=== PATIENT | male | born 1970 | race Caucasian/White ===

== ENCOUNTER 2020-12-11 11:30 | Day surgery (SDC) | payer OTHER, SELFPAY ==
[2020-12-11] VITALS (8 sets, daily range): BP systolic 96–135; BP diastolic 62–89; PULSE 66–80; RESP 12–20; TEMP 36.3–37.3; O2SAT 95–98; BMI 33.4
--- NOTE | 2020-12-11 11:56 | WPDHPUPDATE1 ---
History and Physical Update Update Date/Time: 12/11/20 11:56 History and Physical has been reviewed, including an updated exam of the patient. There are NO changes in the patient's condition. Risks, benefits, and alternatives have been discussed and questions answered. Patient agrees to proceed with procedure.
[2020-12-11] MEDS: ACETAMINOPHEN 500 MG TABLET 1000 MG PO (12:55)
--- NOTE | 2020-12-11 12:55 | P.PNAN_ITS ---
Anes - Initial Pre Proc Eval Procedure: Operation Date: 12/11/20 14:00 Proposed Procedures p Rectal Exam Under Anesthesia, Excision of Thrombosed Hemorrhoid - Marcelina Blandon MD Date/Time: 12/11/20 12:55 Surgeon: Marcelina Blandon MD Pre Op Diagnosis: hemorrhoids Patient Data Age: 50 Gender: M Height: Weight: Allergies Allergy/AdvReac Type Severity Reaction Status Date / Time Penicillins AdvReac Unknown UNKNOWN Verified 12/11/20 11:58 REACTION CHILD Home Medications Medication Instructions Recorded Confirmed Type lisinopril 2.5 mg tablet 2.5 mg PO DAILY 04/24/20 12/11/20 History atorvastatin 20 mg tablet 20 mg PO DAILY #90 tablet 06/03/20 12/11/20 Rx hydrocodone 7.5 mg-acetaminophen 1 tablet PO Q4H PRN #14 tablet 12/10/20 12/11/20 Rx 325 mg tablet ondansetron HCl 4 mg tablet 4 mg PO Q8H PRN #20 tablet 12/11/20 12/11/20 Rx Patient hx anesthesia problems: none Family hx anesthesia problems: none PMFSH Past Medical History Medical History Benign prostatic hyperplasia with lower urinary tract symptoms HTN (hypertension) Mixed hyperlipidemia Surgical History Surgical History No pertinent past surgical history Family History Family History Sibling Patient's brother is in good health Father Cerebrovascular accident Family history of premature coronary heart disease Hypertension Family history of elevated blood lipids Family history of coronary artery disease Mother Cerebrovascular accident Hypertension Family history of elevated blood lipids Social History Social History Social History: Smoking status: Never smoker Second hand tobacco smoke exposure: No Alcohol intake: never Substance use: never Substance use type: does not use 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 Questions were solicited and answers provided to the satisfaction of the patient/family/POA.
[2020-12-11] MEDS: LACTATED RINGERS 1,000 ML 30 ML IV CONT (13:00)
[2020-12-11] MEDS: KETOROLAC 15 MG/ML VIAL (*BKC) IV PUSH (13:02)
[2020-12-11] MEDS: ceFAZolin 2 GM/D5W 50 ML 2 GM/50 ML BAG IVPB (13:10)
[2020-12-11] MEDS: LIDOCAINE HCL 2% GEL UROJET 10 ML PKG MUCOUS MEM (13:38)
[2020-12-11] MEDS: GELATIN SPONGE SZ 100 1 EACH TOPICAL (13:39)
--- NOTE | 2020-12-11 13:57 | PM.PROC ---
Procedure Note - Detailed Date of procedure: 12/11/20 Pre-op diagnosis: hemorrhoids Thrombosed external hemorrhoids Post-op diagnosis: same Procedure performed: exam under anesthesia, excision thrombosed external hemorrhoids x3 Description of procedure: The patient was taken to the operating room and placed in the modified lithotomy position. After adequate induction of general anesthesia, the patient was prepped draped in the normal sterile fashion. A time-out was then done to verify the patient's identity, as well as the procedure being performed. I began by doing a bilateral pudendal nerve block. Once this was achieved, I began by doing a rectal exam. A anoscope was placed into the anus and the rectum was noted to be unremarkable. The patient was noted to have 3 large thrombosed external hemorrhoids right greater than left. He did have a very large thrombosis on the right and 2 moderate sized areas on the left. I began by 1st unroofing all of these areas and evacuating the clots. Once this was done, we used the LigaSure device to excise all 3 of these hemorrhoids. It was noted that the anodermal was hemostatic after excision. I then went ahead and placed a Gelfoam covered with lidocaine jelly into the rectal vault. Sterile dressing was then placed. The patient tolerated the procedure well and was extubated in the operating room postoperatively. He will now be sent to the recovery room in stable condition. Anesthesia: GETA and local Surgeon: Marcelina Blandon MD Estimated blood loss (mL): 10 Drains: No Packing: No Pathology: yes Complications: No immediate complications Condition: stable Disposition: PACU Findings: Thrombosed external hemorrhoid x3
== END 2020-12-11 15:27 | disposition home or self-care (01) ==
PROVIDERS: PCP Family Medicine; Visit Provider Surgery
PROC: (CPT 46320; principal; 2020-12-10 14:30)
DX: K64.5 Perianal venous thrombosis (principal); I10 Essential (primary) hypertension; E78.2 Mixed hyperlipidemia; N40.1 Benign prostatic hyperplasia with lower urinary tract symptoms; E66.9 Obesity, unspecified; Z68.33 Body mass index [BMI] 33.0-33.9, adult
CPT/HCPCS: 46320 ×3; 88304; A9270; J0690; J1100; J1885; J2250; J2405; J2704; J3010; J7120

== ENCOUNTER 2021-09-28 00:12 | Day surgery (SDC) | payer OTHER, SELFPAY ==
[2021-09-18 10:31] VITALS: BMI 35.4
--- NOTE | 2021-09-27 13:25 | P.PNAN_ITS ---
Anes - Eval Pre Procedure Procedure: Operation Date: 09/28/21 13:30 Proposed Procedures p Screening Colonoscopy - Avery Kwong MD Date/Time: 09/27/21 13:25 Pre Op Diagnosis: neoplasm screening Patient Data Age: 51 Gender: M Height: 1.75 m Weight: 109 kg Allergies Allergy/AdvReac Type Severity Reaction Status Date / Time Penicillins AdvReac Unknown UNKNOWN Verified 09/18/21 10:33 REACTION CHILD Home Medications Medication Instructions Recorded Confirmed Type atorvastatin 20 mg tablet 20 mg PO DAILY #90 tablet 08/11/21 09/18/21 Rx chlorthalidone 25 mg tablet 12.5 mg PO DAILY #90 tablet 08/11/21 09/18/21 Rx lisinopril 2.5 mg tablet 2.5 mg PO DAILY #90 tablet 08/11/21 09/18/21 Rx aspirin [Adult Low Dose Aspirin] 81 mg PO DAILY 09/18/21 09/18/21 History Patient hx anesthesia problems: none Family hx anesthesia problems: none Results Review: All pre-operative results and documents have been reviewed as part of the pre-operative evaluation. [facility] Past Medical History Medical History Benign prostatic hyperplasia with lower urinary tract symptoms BMI 33.0-33.9,adult HTN (hypertension) Mixed hyperlipidemia Surgical History Surgical History History of hemorrhoidectomy exam under anesthesia, excision thrombosed external hemorrhoids x3 Family History Family History Sibling Patient's brother is in good health Father Cerebrovascular accident Family history of premature coronary heart disease Hypertension Family history of elevated blood lipids Family history of coronary artery disease Mother Cerebrovascular accident Hypertension Family history of elevated blood lipids Social History Social History Social History: Smoking status: Never smoker Second hand tobacco smoke exposure: No Alcohol intake: never Substance use: never Substance use type: does not use Living arrangements: with family 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
[2021-09-28 13:00] VITALS: BP 122/78; PULSE 69; RESP 18; TEMP 36.1; O2SAT 100; BMI 33.5
[2021-09-28] MEDS: LACTATED RINGERS 1,000 ML 150 ML IV CONT (13:20)
--- NOTE | 2021-09-28 13:26 | WPDANESEFPP ---
Anes - Eval Final PreProcedure Day of Procedure 09/28/21 13:26 Patient weight: obese Heart: regular rate and rhythm Lungs: clear to auscultation and normal air movement Airway: Mallampati scale class II Neurological: alert and oriented Last oral intake: >/= 8 hours ASA classification: III Emergent: no Anesthetic plan: proceed Anesthesia type and monitoring: general GIVS and standard monitoring Results Review: All pre-operative results and documents have been reviewed as part of the pre-operative evaluation. Informed Consent: The patient's anesthetic plan and its attendant risks and benefits were discussed with the patient/family/POA. Questions were solicited and answers provided to the satisfaction of the patient/family/POA.
--- NOTE | 2021-09-28 13:51 | PM.HPGS ---
History of Present Illness History of Present Illness Consent: Risks, benefits, and alternatives have been discussed and questions answered. Patient agrees to proceed with procedure. Chief complaint: neoplasm screening Narrative: Kieran Gimenez is a 51 year old male here for first screening colonoscopy Review of Systems Constitutional: Constitutional: Denies headache(s) and Denies weakness Eyes: Eyes: Denies blurry vision ENT: Reports Normal hearing present, Denies headache(s) and Denies neck pain Cardiovascular: Cardiovascular: Denies chest pain and Denies dyspnea Respiratory: Respiratory: Denies dyspnea Gastrointestinal: Gastrointestinal: Reports no additional gastrointestinal complaints Genitourinary: Genitourinary: Denies dysuria Musculoskeletal: Musculoskeletal: Denies neck pain Integumentary/Breasts: Skin/Breast: Denies dry skin Neurologic: Reports Normal hearing present, Denies headache(s) and Denies weakness Psychiatric: Psychiatric: Denies anxiety Endocrine: Endocrine: Denies change in body appearance Hematologic/Lymphatic: Hematologic/Lymphatic: Denies easy bleeding Allergic/Immunologic: Allergic/Immunologic: Denies urticaria PMFSH Past Medical History Medical History Benign prostatic hyperplasia with lower urinary tract symptoms BMI 33.0-33.9,adult HTN (hypertension) Mixed hyperlipidemia Surgical History Surgical History History of hemorrhoidectomy exam under anesthesia, excision thrombosed external hemorrhoids x3 Family History Family History Sibling Patient's brother is in good health Father Cerebrovascular accident Family history of premature coronary heart disease Hypertension Family history of elevated blood lipids Family history of coronary artery disease Mother Cerebrovascular accident Hypertension Family history of elevated blood lipids Social History Social History Social History: Smoking status: Never smoker Second hand tobacco smoke exposure: No Alcohol intake: never Substance use: never Substance use type: does not use Living arrangements: with family 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 Gender identity (if verbalized by the patient): Male Sexual Orientation (if Verbalized by the Patient): Straight or Heterosexual Spiritual care concerns: No Meds Home Medications and Allergies Home Medications Medication Instructions Recorded Confirmed Type atorvastatin 20 mg tablet 20 mg PO DAILY #90 tablet 08/11/21 09/28/21 Rx chlorthalidone 25 mg tablet 12.5 mg PO DAILY #90 tablet 08/11/21 09/28/21 Rx lisinopril 2.5 mg tablet 2.5 mg PO DAILY #90 tablet 08/11/21 09/28/21 Rx aspirin [Adult Low Dose Aspirin] 81 mg PO DAILY 09/18/21 09/28/21 History Allergies Allergy/AdvReac Type Severity Reaction Status Date / Time Penicillins AdvReac Unknown UNKNOWN Verified 09/28/21 13:07 REACTION CHILD Vital Signs Vital Signs - 24 hr 09/28/21 13:00 Temperature 97.0 F L Pulse Rate 69 Respiratory Rate 18 Blood Pressure 122/78 Pulse Oximetry 100 Exam Const: General: comfortable and no acute distress HENMT: General nose exam: Normal nares present Eyes: General: appearance normal, both eyes and all related structures Neck: Neck: no JVD Resp: Auscultation: clear to auscultation bilaterally Cardio: Rate: regular rate Rhythm: regular rhythm GI: Inspection: non-distended GI Palp: Yes Soft to palpation Skin: General skin exam: normal color Neuro: General: gait normal Speech: normal speech Extrem: General: normal to inspection Psych: Mental Status: mental status grossly normal Assessment and Plan Assessment and plan (1) Screening for colon cance
[2021-09-28 14:18] VITALS: BP 102/75; PULSE 70; RESP 16; O2SAT 98
[2021-09-28 14:28] VITALS: BP 108/76; PULSE 66; RESP 15; O2SAT 100
[2021-09-28 14:38] VITALS: BP 126/77; PULSE 67; RESP 18; O2SAT 100
== END 2021-09-28 14:47 | disposition home or self-care (01) ==
PROVIDERS: PCP Family Medicine; Visit Provider Internal Medicine Gastroenterology
PROC: 0DJD8ZZ Inspection of Lower Intestinal Tract, Via Natural or Artificial Opening Endoscopic (ICD-10-PCS; CPT 45378; principal; 2021-09-28 13:30)
DX: Z12.11 Encounter for screening for malignant neoplasm of colon (principal); D12.2 Benign neoplasm of ascending colon; D12.3 Benign neoplasm of transverse colon; K57.30 Diverticulosis of large intestine without perforation or abscess without bleeding; I10 Essential (primary) hypertension; E78.2 Mixed hyperlipidemia; Z79.82 Long term (current) use of aspirin; E66.9 Obesity, unspecified; Z68.33 Body mass index [BMI] 33.0-33.9, adult
CPT/HCPCS: 45385; 45380; 88305; J2704; J7120

== ENCOUNTER 2023-01-28 08:33 | Outpatient (CLI) | payer OTHER, SELFPAY ==
--- NOTE | ~2023-01-28 | XR_ITS ---
EXAMINATION: XR lumbar spine min 4V DATE: 01/28/2023 08:59 INDICATION: Spondylosis without myelopathy or radiculopathy. TECHNIQUE: 5 views of lumbar spine were obtained. COMPARISON: Lumbar spine radiographs 07/01/2016, CT abdomen and pelvis 12/14/2018 FINDINGS: Bone alignment is normal. There is mild chronic anterior wedging of L1 vertebral body. Ther e is mildly decreased disc height at L3-L4 and L5-S1. There is multilevel mild facet joint osteoarthr itis. There is moderate to severe facet joint osteoarthritis in lower lumbar spine. IMPRESSION: 1. Mild lumbar spondylosis. Reviewed, dictated and finalized at location A. IMPRESSION: 1. Mild lumbar spondylosis.
== END 2023-01-28 08:34 ==
PROVIDERS: PCP Family Medicine; Visit Provider Physician Assistant
DX: M47.816 Spondylosis without myelopathy or radiculopathy, lumbar region (principal)
CPT/HCPCS: 72110

== ENCOUNTER 2023-03-01 07:49 | Day surgery (SDC) | payer OTHER, SELFPAY ==
[2023-02-24 13:37] VITALS: BMI 35.4
--- NOTE | ~2023-03-01 | XR_ITS ---
EXAMINATION: XR fluoroscopy no charge DATE: 03/01/2023 8:45 CDT INDICATION: LEFT SACROILIAC JOINT STEROID INJECTION . TECHNIQUE: 3 fluoroscopic images of the left SI joint were obtained during left SI joint steroid inje ction performed by the surgeon. I was not present in the operating room. Fluoroscopy exposure time wa s 7.1 seconds. Air Kerma 6.01 mGy. COMPARISON: None FINDINGS: Left sacroiliac injection, with needle and contrast. IMPRESSION: Fluoroscopic documentation of left SI joint steroid injection. Please refer to the operative note for complete procedural details . Reviewed, dictated and finalized at location K.
--- NOTE | 2023-03-01 07:17 | WPDHPUPDATE1 ---
History and Physical Update Update Date/Time: 03/01/23 07:17 History and Physical has been reviewed, including an updated exam of the patient. There are NO changes in the patient's condition. Risks, benefits, and alternatives have been discussed and questions answered. Patient agrees to proceed with procedure.
[2023-03-01 08:13] VITALS: BP 134/90; PULSE 65; RESP 16; TEMP 36.6; O2SAT 99
[2023-03-01] MEDS: BUPivacaine HCL 0.5% 10 ML AMP 2 ML INFILTRATE (08:42)
[2023-03-01 08:44] VITALS: BP 130/84; PULSE 64; RESP 16; O2SAT 98
[2023-03-01] MEDS: LIDOCAINE HCL 1% PF INJ 5 ML VIAL 2 ML XX (08:44)
--- NOTE | 2023-03-01 08:46 | W.PM.PROC2 ---
Procedure Note - Detailed Date of Procedure 03/01/23 Pre-op Diagnosis sacroiliitis, lumbosacral spondylosis, chronic low back pain Post-op Diagnosis Same Procedure Performed left sacroiliac joint steroid injection under fluoroscopic guidance with contrast control. Surgeon Manoj Villegas MD [employer] Architect None. Anesthesia Local Indications Chronic low back pain secondary to sacroiliitis. Findings None. Description of Procedure INFORMED CONSENT: Risks, benefits and alternatives to the procedure were discussed in detail with the patient who expressed explicit understanding and consent to proceed. Patient was informed verbally and in written form regarding the risks associated with the procedure including the low risk of serious infection, bleeding/bruising, allergic reaction, nerve or organ injury, paralysis, procedural site pain or discomfort, worsening pain and/or mobility, failure to treat and/or disfigurement. The patient expressed explicit understanding and consent to proceed. All materials required for the procedure were available prior to procedure start. Site and side were marked prior to procedure and confirmed in the presence of the patient. PROCEDURE IN DETAIL: The patient was brought to the procedural suite and placed in the prone position. Patient was made comfortable with use of pillows under the head/chest, hips and ankles. Skin overlying the injection site on the affected side(s) was prepared broadly with ChloraPrep applicator and draped in a sterile manner. Aseptic technique was used throughout. The SI joint was identified in the AP view and contralateral oblique angulation with caudal tilt was utilized to optimize visualization of the inferior and medial joint line representing the posterior portion of the joint. Local anesthesia was established by infiltration with approximately 5 mL of 2% lidocaine via a 1-1/2 inch 27-gauge needle. A 22-gauge 3.5 inch Quincke spinal needle was advanced until the needle entered the inferior third of the joint space approximately 1cm cephalad from its most inferior point. In the AP view, 0.5 mL of Omnipaque 300 contrast medium was injected after negative aspiration for CSF, blood or other bodily fluid, showing appropriate intra-articular spread of contrast without evidence of intravascular, perineural or intrathecal placement. A 2.0 mL solution containing 10.0 mg of dexamethasone in 0.5% PF bupivacaine was injected after repeat negative aspiration. Appropriate spread of the injectate was confirmed with washout of previous injected contrast. No parasthesias were elicited. Needle was removed completely intact without difficulty. Images were saved and documented in the patient chart. Patient's skin was cleansed and sterile bandage applied. The patient tolerated the procedure well. The patient was transported to the recovery area in stable condition where they were observed for an appropriate amount of time prior to discharge, without evidence of complication. The patient was instructed to avoid excessive activity for the next 48 hours, including climbing and frequent use of stairs. Showers only for 48 hours. They were instructed not to drive or operate heavy machinery for 24 hours. They are to monitor for severe headaches, fevers, chills, night sweats, erythema/swelling at the site or any other signs of infection, bleeding/bruising, bowel or bladder changes as well as new pain, weakness or numbness in the upper or lower extremity. Should they notice these changes, they are instructed to call our office immediately or report directly to the nearest Emergency Department if no answer or if after posted office hours. COMPLICATIONS: None COMMENTS: None EXPOSURE: Time: 7.1s, Dose: 6.01mGy CONTRAST WASTED: 29.5mL Omnipaque 300. [facility] Billing Surgery - Charge Forward: Surgery Billing
[2023-03-01 08:48] VITALS: BP 142/86; PULSE 77; RESP 18; O2SAT 98
--- NOTE | 2023-03-01 09:06 | SUR.PHASEII ---
0855; PT STATES DR ORTA'S OFFICE TOLD HIM HE COULD GO BACK TO WORK AFTER INJECTION. REVIEWED POST CARE INSTRUCTIONS WITH PT AND SPOUSE.
== END 2023-03-01 09:00 | disposition home or self-care (01) ==
PROVIDERS: PCP Family Medicine; Visit Provider Anesthesiology Pain Medicine
PROC: (CPT 27096; principal; 2023-03-01 08:00)
DX: M46.1 Sacroiliitis, not elsewhere classified (principal); M47.817 Spondylosis without myelopathy or radiculopathy, lumbosacral region; M54.59 Other low back pain
CPT/HCPCS: 27096; 99199; G0260

== ENCOUNTER → 2023-03-31 15:57 | Outpatient (CLI) | payer OTHER, SELFPAY ==
--- NOTE | ~2023-03-31 | MR_ITS ---
EXAMINATION: MR lumbar spine wo con DATE: 03/31/2023 16:22 INDICATION: Radiculopathy, lumbosacral region. TECHNIQUE: Magnetic resonance imaging (MRI) of the lumbar spine was performed without intravenous con trast. Sequences included sagittal T2-weighted FSE, sagittal T2-weighted FS FSE, sagittal T1-weighted FSE, and axial T2-weighted FSE. COMPARISON: Lumbar spine radiographs 01/28/2023 FINDINGS: There is 3 mm retrolisthesis of L3 on L4 and L5 on S1. There is chronic anterior wedging of L1 vertebral body. There is mildly decreased disc height at L3-L4 and L4-L5 and moderately decreased disc height at L5-S1. The distal spinal cord signal intensity is normal. The conus medullaris is at L1-L2. The following disc levels are specifically discussed: L1-L2: The disc does not extend beyond the endplate margin. There is severe right and moderate left f acet joint osteoarthritis. There is no neural foraminal stenosis. There is no central canal stenosis. L2-L3: The disc does not extend beyond the endplate margin. There is mild bilateral facet joint osteo arthritis. There is no neural foraminal stenosis. There is no central canal stenosis. L3-L4: The disc is bulging and has an annular fissure. There is mild bilateral facet joint osteoarthr itis. There is mild right neural foraminal stenosis. There is mild central canal stenosis. L4-L5: This is bulging and has an annular fissure. There is severe bilateral facet joint osteoarthrit is. There is mild bilateral neural foraminal stenosis. There is mild central canal stenosis. L5-S1: There is a left subarticular zone extrusion with mass effect on left S1 nerve root in left lat eral recess. There is severe bilateral facet joint osteoarthritis. There is mild bilateral neural for aminal stenosis. There is mild central canal stenosis. There is moderate stenosis of left lateral rec ess. IMPRESSION: 1. Moderate lumbar spondylosis, worst at L5-S1. Reviewed, dictated and finalized at location E.
--- NOTE | ~2023-03-31 | XR_ITS ---
EXAMINATION: XR hip RT min 2V DATE: 03/31/2023 16:53 INDICATION: Right hip pain. TECHNIQUE: 2 views of right hip were obtained. COMPARISON: None. FINDINGS: Bone alignment is normal. No fracture. There is severe right hip osteoarthritis. IMPRESSION: 1. Severe right hip osteoarthritis. Reviewed, dictated and finalized at location E.
== END ==
PROVIDERS: PCP Anesthesiology; Visit Provider Anesthesiology
DX: M54.17 Radiculopathy, lumbosacral region (principal); M25.551 Pain in right hip
CPT/HCPCS: 72148; 73502

== ENCOUNTER 2024-02-21 14:05 | Outpatient (CLI) | payer OTHER, SELFPAY ==
--- NOTE | ~2024-02-21 | XR_ITS ---
Right Shoulder Technique: AP and axillary views were obtained. Clinical History: Osteoarthritis Findings: No fracture or dislocation is seen. Osseous alignment is anatomic. The glenohumeral and acr omioclavicular joint spaces are preserved. Soft tissues are unremarkable. Impression: Unremarkable right shoulder radiographs. Reviewed, dictated and finalized at [facility]. Impression: Unremarkable right shoulder radiographs.
== END 2024-02-21 14:06 ==
LOC: MICIMG 14:07
PROVIDERS: PCP Family Medicine; Visit Provider Family Medicine
DX: M19.011 Primary osteoarthritis, right shoulder (principal)
CPT/HCPCS: 73030

== ENCOUNTER 2024-08-29 09:16 | Outpatient (CLI) | payer OTHER, SELFPAY ==
--- NOTE | ~2024-08-29 | XR_ITS ---
Lumbosacral Spine: AP and lateral views Clinical History: Pain Findings: The normal lordotic curve is maintained. The vertebral bodies and posterior elements are i ntact. There is advanced degenerative disc narrowing at L5-S1. Remaining disc spaces are relatively w ell-preserved. There is moderate facet arthropathies, especially from L3 through S1. The sacroiliac joints are normally outlined. Impression: Moderate degenerative spondylosis of the lower lumbar spine, as above. Reviewed, dictated and finalized at location M. WORKER Impression: Moderate degenerative spondylosis of the lower lumbar spine, as above.
--- NOTE | ~2024-08-29 | XR_ITS ---
AP view of the pelvis and AP and lateral views of the right hip Clinical history: Pain Findings: No acute fracture or dislocation is seen. Osseous alignment is anatomic. There is severe ri ght hip joint degenerative change, with joint space narrowing and osteophyte formation. There is mini mal left hip joint degenerative change. Soft tissues are unremarkable. Impression: Severe right hip joint degenerative change. Reviewed, dictated and finalized at location . 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
--- NOTE | ~2024-08-29 | XR_ITS ---
HISTORY: M25.519 - Pain in unspecified shoulder COMPARISON: None TECHNIQUE: 2 views of the cervical spine performed. FINDINGS: Visualization of the cervical spine to the inferior endplate of C7 Preservation of the normal curvature of the cervical spine is identified. No prevertebral soft tissue swelling is appreciated. No acute compression fracture is noted. The dens is equidistant between the pillars, without asymmetry. Degenerative disease is identified at the level of C5/C6 and to a lesser extent C6/C7. With osteophyt e formation and disc space narrowing. Air column within the trachea is midline. The visualized portions of the bilateral upper lung williamson are unremarkable. IMPRESSION: Degenerative disease, without acute fracture. Reviewed, dictated and finalized at location A. CAID BUSINESS ANALYST
--- NOTE | ~2024-08-29 | XR_ITS ---
Left Shoulder Technique: AP, axillary, and scapular Y views were obtained. Clinical History: Pain Findings: No fracture or dislocation is seen. Osseous alignment is anatomic. The glenohumeral and acr omioclavicular joint spaces are preserved. Soft tissues are unremarkable. Impression: Unremarkable left shoulder radiographs. Reviewed, dictated and finalized at [facility]. 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
== END 2024-08-29 09:17 | disposition home or self-care (01) ==
PROVIDERS: PCP Family Medicine; Visit Provider Student in an Organized Health Care Education/Training Program
DX: M54.50 Low back pain, unspecified (principal); M25.512 Pain in left shoulder; M25.551 Pain in right hip; M50.322 Other cervical disc degeneration at C5-C6 level; M43.06 Spondylolysis, lumbar region
CPT/HCPCS: 72040; 72100; 73030; 73502

== ENCOUNTER 2024-09-03 03:38 | Day surgery (SDC) | payer OTHER, SELFPAY ==
[2024-08-30 08:30] VITALS: BMI 39.9
--- OUTSIDE RECORDS SUMMARY | 2024-09-03 03:40 | XMS_ITS ---
Author Organization [facility] Address [address] [place] [address] Care Team Providers Care Communications Engineer Name Role Phone COURTNEY ROMAN, ESTEFANI Primary Care Provider Antonieta Jose Eduardo Church Unavailable [phone] GEOVANNA PT, NAEL Unavailable Unavailable REASON FOR VISIT Needs call back from office MEDICATIONS Medication SIG (Take, Route, Fr equency, Duration) Notes Start Date End Date Status methylPREDNISolone 4 MG as directed Orally 023 Active Encounters Encounter Location Date Provider Diagnosis [facility] [address] [place] [address] 06/23/2023 Jose Eduardo Santana PLAN OF TREATMENT Medication Medication Name Sig Start Date Stop Date Notes methylPREDNISolone 4 MG as directed Orally 06/23/2023
--- OUTSIDE RECORDS SUMMARY | 2024-09-03 03:41 | XMS_ITS | Patient Health Record ---
Author Organization [facility] Address [address] [place] [address] MARTY Ash [address] Care Team Providers Care Agricultural Scientist Name Role Phone COURTNEY ROMAN, ESTEFANI Primary Care Provider Antonieta rayarovertoJose Eduardo Fuentes Unavailable [phone] NAEL AUSTIN PT Unavailable Unavailable ALLERGIES Allergen (clinical drug ingredient) Drug/Non Drug Allergy documented on EMR Reaction Allergy Type Onset Date Status Penicillin hives Drug Allergy Active REASON FOR REFERRAL No Information MEDICATIONS Medication SIG (Take, Route, Frequency, Duration) Notes Start Date End Date Status methylPREDNISolone 4 MG as directed Orally 023 Active Lisinopril 2.5 MG 1 tablet Oral Once a day Active Atorvastatin Calcium 20 MG TAKE 1 TABLET BY MOUTH DAILY Oral for 90 Active Aspirin 81 MG 1 tablet Orally Once a day for 30 day(s) Active Albuterol Sulfate 108 (90 Base) MCG/ACT 1 puff as needed Inhalation every 4 hrs Active SOCIAL HISTORY Tobacco Use: Social History Observation Description Date Details (start date - stop date) Never Smoker NA - NA Sex Assigned At : Social History Observation Description Sex Assigned At Unknown Tobacco Use/Smoking Question Answer Notes Are you a nonsmoker PROBLEMS Problem Type ICD Code Onset Dates Problem Status W/U Status Risk SNOMED Code Notes Problem Unilateral primary osteoarthritis, right hip (M16.11) Active confirmed Localized, primary osteoarthritis of the pelvic region and thigh (432827693) Problem Pain in right hip (M25.551) Active confirmed Arthralgia of t he pelvic region and thigh (542270117) Problem Sacroiliitis, not elsewhere classified (M46.1) Active confirmed Solitary sacroiliitis (713814033) Problem Spondylosis without myelopathy or radiculopathy, lumbar region (M47.816) Active confirmed Lumbosacral spondylosis without myelopathy (04821649) Problem Spondylosis without myelopathy or radiculopathy, lumbosacral region (M47.817) Active confirmed Lumbosacral spondylosis without myelopathy (disorder) (08216848) Problem Intervertebral disc disorders with radiculopathy, 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) Active confirmed Lumbosacral radiculopathy (8513131) Problem Other intervertebral disc degeneration, lumbar region (M51.36) Active confirmed Degeneration of lumbar intervertebral disc (18220266) Problem Radiculopathy, lumbar region (M54.16) Active confirmed Lumbar radiculopathy (442053010) Problem Radiculopathy, lumbosacral region (M54.17) Active confirmed Lumbosacral radiculopathy (0708069) Problem Osseous stenosis of neural canal of lumbar region (M99.33) Active confirmed Spinal stenosis of lumbar region (71700877) Problem 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 [address] [place] [address] [id number] RICH ELIZABETH Self - patient is the insured MEDICAL (GENERAL) HISTORY Medical History History ICD Code Polycythemia BPH Hypertension Diverticulitis Surgical History Surgery Date(Month/Year) Hemorrhoidectomy Hospitalization History Reason Date(Month/Year) SEE SURGERIES ABOVE
--- OUTSIDE RECORDS SUMMARY | 2024-09-03 03:41 | XMS_ITS | Clinical Summary ---
Author Organization [facility] Address [address] [place] [address] Care Team Providers Care Long Term Care Pharmacist Name Role Phone Rakel Olivier MD Primary Care Provider +1- [phone] Allergies Active Allergy Reactions Criticality Noted Date Comments Penicillins Hives High 09/26/2018 Medications atorvastatin (LIPITOR) 10 mg tablet Take 10 mg by mouth daily with supper. Active aspirin (ECOTRIN EC) 81 mg Tablet, Delayed Release (E.C.) Take 81 mg by mouth daily. 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 Gender Identity Not on file Sexual Orientation Not on file Last Filed Vital Signs Vital Sign Reading Time Taken Comments Blood Pressure 137/92 10/11/2018 10:22 AM CDT Pulse 69 10/11/2018 10:22 AM CDT Temperature 36.7 C (98.1 F) 10/11/2018 10:22 AM CDT Respiratory Rate 18 10/11/2018 10:2 2 AM CDT Oxygen Saturation 96% 10/11/2018 10: 22 AM CDT Inhaled Oxygen Concentration - - Weight 106.3 kg (234 lb 6.4 oz) 019 10:22 AM CDT Height 175.3 cm (5' 9 ) 10/11/2018 10:2 2 AM CDT Body Mass Index 34.61 10/11/2018 10:22 AM CDT Plan of Treatment Health Maintenance Due Date Last Done Comments DTAP/TDAP/TD VACCINES (1 - Tdap) 1989 HEPATITIS B VACCINES (1 of 3 - 19+ 3-dose series) 1989 COLORECTAL SCREENING 2015 Colorectal Cancer Screening 2015 FIT-DNA Q 3 years 2015 FIT/FOBT Q 1 year 2015 Flex Sig/CT Colonography Q 5 years 2015 ZOSTER VACCINE (1 of 2) 2020 INFLUENZA VACCINE (#1) 2024 PNEUMOCOCCAL VACCINE 0-64 YEARS Aged Out No longer eligible based on patient's age to complete this topic Insurance [facility] Address: [facility] [id number] [place] [address] Care Teams Long Term Care Pharmacist Relationship Specialty Start Date End Date Rakel Olivier MD PCP - General Family Practice 09/18/18
--- OUTSIDE RECORDS SUMMARY | 2024-09-03 03:41 | XMS_ITS ---
Author Organization [facility] Address [address] [place] [address] Care Team Providers Care Roustabout Hand Name Role Phone COURTNEY ROMAN, ESTEFANI Primary Care Provider Antonieta Jose Eduardo Church Unavailable [phone] GEOVANNA PT, NAEL Unavailable Unavailable REASON FOR VISIT Refills MEDICATIONS Medication SIG (Take, Route, Fr equency, Duration) Notes Start Date End Date Status methylPREDNISolone 4 MG as directed Orally 023 Active Encounters Encounter Location Date Provider Diagnosis [facility] [address] [place] [address] 06/27/2023 Jose Eduardo Santana PLAN OF TREATMENT Medication Medication Name Sig Start Date Stop Date Notes methylPREDNISolone 4 MG as directed Orally 06/23/2023
--- OUTSIDE RECORDS SUMMARY | 2024-09-03 03:41 | XMS_ITS ---
Author Organization [facility] Address [address] [place] [address] [place] [address] Care Team Providers Care Cancer Program Consultant Name Role Phone COURTNEY ROMAN, ESTEFANI Primary Care Provider Antonieta Jose Eduardo Church Unavailable [phone] GEOVANNA ADAMS, NAEL Unavailable Unavailable ALLERGIES Allergen (clinical drug ingredient) Drug/Non Drug Allergy documented on EMR Reaction Allergy Type Onset Date Status Penicillin hives Drug Allergy Active REASON FOR VISIT Left > Right Low Back Pain, Left Lower Extremity Pain MEDICATIONS Medication SIG (Take, Route, Frequency, Duration) Notes Start Date End Date Status Lisinopril 2.5 MG 1 tablet Oral Once a day Active Atorvastatin Calcium 20 MG TAKE 1 TABLET BY MOUTH DAILY Oral for 90 Active Aspirin 81 MG 1 tablet Orally Once a day for 30 day(s) Active Albuterol Sulfate 108 (90 Base) MCG/ACT 1 puff as needed Inhalation every 4 hrs Active VITAL SIGNS Blood pressure systolic 140 mm Hg 06/13/20 23 Blood pressure diastolic 102 mm Hg 023 Heart Rate 68 /min 06/13/2023 Respiratory Rate 18 /min 06/13/2023 Height 69 in 06/13/2023 Weight 240 lbs 06/13/2023 BMI 35.44 kg/m2 06/13/2023 Encounters Encounter Location Date Provider Diagnosis [facility] [address] [facility] [place] [address] 06/13/2023 Jose Eduardo Santana Sacroiliitis, not elsewhere classified M46.1 ASSESSMENTS Encounter Date Diagnosis Assessment Notes Treatment Notes Treatment Clinical Notes 06/13/2023 Sacroiliitis, not elsewhere classified (ICD-10 - M46.1) 06/13/2023 Josee Caldera was present for the entire interview and physical examination, acting as a scribe for Dr. Jose Eduardo Santana. Some of the above chart information was entered by Evelyne Cladera. Dr. Santana has reviewed and agrees with this portion of the documentation. The remainder of the above note was dictated by Dr. Santana using voice recognition software and therefore inadvertent errors may have occurred. As a result, this note may not represent a completely accurate interpretation of the intended dictation provided. PLAN OF TREATMENT Treatment Notes Assessment Notes Josee Caldera was present for the entire interview and physical examination, acting as a scribe for Dr. Jose Eduardo Santana. Some of the above chart information was entered by Evelyne Caldera. Dr. Santana has reviewed and agrees with this portion of the documentation. The remainder of the above note was dictated by Dr. Santana using voice recognition software and therefore inadvertent errors may have occurred. As a result, this note may not represent a completely accurate interpretation of the intended dictation provided. Next Appt Details Follow Up: Patient has OPV 1 08/29/22, Reason: Procedure Notes * Category Sub-Category Detail Notes Sacroiliac Joint Injection w ith Arthrogram under Fluoroscopy Location Left Anesthesia Local without IV sed ation Operative Technique After the risks, hussain efits, alternative treatments and potential complications related to the procedure were discussed and informed consent was obtained, the patient was placed in the prone position on the fluoroscopy table. Standard ASA monitors were applied. The lower back and buttocks were prepped and draped in the usual sterile fashion with chlorhexidine 2%/IPA 70%. The left, followed by the right, sacroiliac joint was identified under live x-ray. An AP view was obtained superimposing the inferior aspect of the anterior and posterior sacroiliac joint. A 23 gauge 3.5 inch spinal needle was inserted under fluoroscopic guidance towards the inferior aspect of the sacroiliac joint until periosteum was contacted. The subcutaneous structures were anesthetized with 3 mL of 1% Preservative-Free lidocaine during needle placement. The needle tip was advanced into the inferior most aspect of the sacroiliac joint. A lateral view was taken to ensure correct placement within the sacroiliac joint. An AP view was taken and after negative aspiration for blood, air and CSF, 2 mL of Omnipaque 240 contrast dye was injected into each joint under live fluoroscopy for an arthrogram demonstrating normal cephalad spread within the sacroiliac joint (except in cases of contrast allergy). No intravascular or perineural spread noted. There were no abnormalities in articular contour noted on the arthrogram. A solution of 10 mg of Preservative-Free Dexamethasone (10 mg/mL), plus 3 mL of 0.25% PF bupivacaine was mixed and after negative aspiration 2 mL of this solution was slowly injected into each (left followed by right) joint space. The needle was removed, the skin was cleaned and band-aids were placed over the puncture site. The patient tolerated the procedure well, was able to ambulate without difficulty and was monitored for 20 minutes. The patient remained hemodynamically and neurologically stable. No apparent complications were observed. Postoperative instructions were reviewed with the patient. 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 X-ray time: 8 seconds Progress Notes * Examination Category Sub-Category Detail Notes Examination/ Pre-Anesthesia Assessment General: The patient is alert and jasbir ented X 3 in moderate distress secondary to pain HEENT: Normocephalic, atrau matic. PERRL. The oropharynx is clear Neck: There is full range of motion of the cervical spine Heart: Regular rate and rhy thm Chest: Clear to auscultatio n bilaterally Abdomen: Soft and benign with normal bowel sounds throughout Musculoskeletal and Extremities: There i s tenderness to palpation over the bilateral L2-3 through L5-S1 facet joints. Extension and lateral rotation of the lumbar spine reproduces the patient's typical axial low back pain. Miguel Angel's, [place]'s and [place]'s are positive bilaterally. There is tenderness to palpation over the bilateral sacroiliac joints and greater trochanters. There is tenderness to palpation over the bilateral lumbar paraspinal muscles. There is pain with flexion of the right hip. External rotation of the right hip is limited to 120 degrees Neurological: There is positive st raight leg raising on the left. There are no focal strength deficits in the bilateral upper and lower extremities Skin: Clean, dry and intac t Psychiatric: Mood and affect are normal History and Physical Notes * HPI (History of Present Illness) Category Sub-Category Detail Notes Pain Management Radiographic Imaging X-ray lumba r spine done on 01/28/23 demonstrates DDD with decreased disc height at L3-4 and L5-S1. There is chronic anterior wedging of the L1 vertebral body. There is moderate to severe bilateral facet arthropathy at all levels of the lumbar spine. MRI Lumbar Spine done on 03/31/23 shows L4-5 severe bilateral facet joint osteoarthritis. L5-S1 left subarticular zone excursion, moderate stenosis of left lateral recess. X-ray right hip performed 03/31/23 reveals severe right hip osteoarthritis Assessment and Follow-up: Follow-up Plan documen stephen:: Yes [facility] Quality 2020: [facility] Documented:: Compliant
--- OUTSIDE RECORDS SUMMARY | 2024-09-03 03:41 | XMS_ITS | Continuity of Care Document ---
Author Name [facility] Address [address] [place] [address] Organization [facility] Care Team Providers Care Sky Diver Name Role Phone [facility] Unavailable Unavailable Allergies, Adverse Reactions, Alerts Substance Category Reaction Severity Reaction type Status Date Reported Comments Source [facility]
--- OUTSIDE RECORDS SUMMARY | 2024-09-03 03:41 | XMS_ITS | Clinical Summary ---
Author Organization [facility] Address [address] [place] [address] Care Team Providers Care Toe Sewer Name Role Phone Rakel Olivier MD Primary Care Provider +1- [phone] Allergies Active Allergy Reactions Criticality Noted Date Comments Penicillins Unknown 07/11/2023 Patient states mom told him this when younger. Not sure if he is actually allergic to it Tolerated ceftriaxone 02/2024 Medications atorvastatin (LIPITOR) 20 MG tablet Take 1 tablet (20 mg total) by mouth nightly at bedtime. Active lisinopril (PRINIVIL) 2.5 MG tablet Take 1 tablet (2.5 mg total) by mouth daily. Active aspirin 81 MG chewable tablet Chew 1 tablet (81 mg total) by mouth daily. Active tamsulosin (FLOMAX) 0.4 MG Cap Take 1 capsule (0.4 mg total) by mouth daily. 30 capsule 03/12/2024 Active Active Problems Problem Noted Date Diagnosed Date Left ureteral stone 03/08/2024 Hypertension 09/25/2019 Obesity (BMI 30.0-34.9) 09/25/2019 Polycythemia, secondary 09/26/2018 Lower back pain 05/11/2012 Family History Medical History Relation Comments Heart Disease Other Relation Status Comments Other Social History Tobacco Use Types Packs/Day Years Used Date Smoking Tobacco: Never Smokeless Tobacco: Never Tobacco Cessation:Counseling Given: Not Answered Alcohol Use Standard Drinks/Week Comments Never 0 (1 standard drink = 0.6 oz pur e alcohol) B1300 Health Literacy Answer Date Recor ded How often do you need to hav e someone help you when you read instructions, pamphlets, or other written material from your doctor or pharmacy? Rarely 03/08/2024 [facility] Utilities Answer Date Recorded In the past 12 months has th e electric, gas, oil, or water [employer] threatened to shut off services in your home? No 03/08/2024 Humiliation, Afraid, Rape, and Kick questionnair e Answer Date Recorded Within the last year, have y ou been afraid of your partner or ex-partner? No 03/08/2024 Within the last year, have y ou been humiliated or emotionally abused in other ways by your partner or ex-partner? No Within the last year, have y ou been kicked, hit, slapped, or otherwise physically hurt by your partner or ex-partner? No 03/08/2024 Within the last year, have y ou been raped or forced to have any kind of sexual activity by your partner or ex-partner? No 03/08/2024 Social Connection and Isolat ion Panel [NHANES] Answer Date Recorded In a typical week, how many times do you talk on the phone with family, friends, or neighbors? More than three times a week 03/08/2024 How often do you get togethe r with friends or relatives? More than three times a week 03/08/2024 How often do you attend chur ch or congregational services? Never 03/08/2024 Do you belong to any clubs o r organizations such as confucianist groups, unions, fraternal or athletic groups, or school groups? No 03/08/2024 How often do you attend meet ings of the clubs or organizations you belong to? Never 03/08/2024 Are you , , di vorced, , never , or living with a partner? 03/08/2024 AUDIT-C Answer Date Recorded Q1: How often do you have a drink containing alcohol? Never 03/08/2024 Q2: How many drinks containi ng alcohol do you have on a typical day when you are drinking? Patient does not drink Q3: How often do you have si x or more drinks on one occasion? Never 03/08/2024 Overall Financial Resource Strain (CARDIA) Answe r Date Recorded How hard is it for you to pa y for the very basics like food, housing, medical care, and heating? Somewhat hard 03/08/2024 [facility] [place] of Occupat ional Health - Occupational Stress Questionnaire Answer Date Recorded Do you feel stress - tense, restless, nervous, or anxious, or unable to sleep at night because your mind is troubled all the time - these days? Only a little 03/08/2024 Exercise Vital Sign Answer Date Recorde d On average, how many days pe r week do you engage in moderate to strenuous exercise (like a brisk walk)? 0 days 03/08/2024 On average, how many minutes do you engage in exercise at this level? 0 min 03/08/2024 Hunger Vital Sign Answer Date Recorded Within the past 12 months, y ou worried that your food would run out before you got the money to buy more. Never true 03/08/20 24 Within the past 12 months, t he food you bought just didn't last and you didn't have money to get more. Never true 03/08/2024 PRAPARE - Transportation Answer Date Re corded In the past 12 months, has l ack of transportation kept you from medical appointments or from getting medications? No 02/22 In the past 12 months, has l ack of transportation kept you from meetings, work, or from getting things needed for daily living? No 03/08/2024 Housing Stability Vital Sign Answer Luis Alberto e Recorded In the last 12 months, was t here a time when you were not able to pay the mortgage or rent on time? No 03/08/2024 In the past 12 months, how m any times have you moved where you were living? 0 03/08/2024 At any time in the past 12 m [facility], were you homeless or living in a chcf (including now)? No 03/08/2024 Sex and Gender Information Value Date Recorded Sex Assigned at Not on file Legal Sex Male 4:23 PM CDT Gender Identity Not on file Sexual Orientation Not on file Last Filed Vital Signs Vital Sign Reading Time Taken Comments Blood Pressure 140/94 03/11/2024 7:39 AM CDT Pulse 71 03/11/2024 4:59 AM CDT Temperature 36.7 C (98.1 F) 03/11/2024 7:39 AM CDT Respiratory Rate 16 03/11/2024 7:39 AM CDT Oxygen Saturation 95% 03/11/2024 7:39 AM CDT Inhaled Oxygen Concentration - - Weight 114.3 kg (251 lb 15.8 oz) 03/11/2024 4:59 AM CDT Height 175.3 cm (5' 9 ) 03/08/2024 6:47 PM CDT Body Mass Index 37.21 03/08/2024 6:47 PM CDT Plan of Treatment Health Maintenance Due Date Last Done Comments Colorectal Cancer Screening Colonoscopy (10 Years) 1970 Annual Physical 1973 Hepatitis C 1988 Hepatitis B Vaccines (1 of 3 - 19+ 3-dose series) 1989 Zoster Vaccines (1 of 2) 2020 COVID-19 Vaccine ( - 2023-2 5 season) 2024 Influenza Adult (#1) 2024 DTaP, Tdap and Td Vaccines ( 3 - Td or Tdap) 11/17/2032 11/17/2022, 01/03/2014 Meningococcal B Vaccine Aged Out No l onger eligible based on patient's age to complete this topic Meningococcal Vaccine Aged Out No qing saqib eligible based on patient's age to complete this topic Pneumococcal Vaccine: Pediatrics (0 to 5 Years) and At-Risk Patients (6 to 64 Years) Aged Out No longer eligible b ased on patient's age to complete this topic RSV Immunizations Under 20 Months Aged Out No longer eligible b ased on patient's age to complete this topic Insurance [facility] Advance Directives * Full Code (Latest Code Status on File) Date Activated Date Inactivated Comments 03/08/2024 7:12 PM 03/11/2024 2:24 PM Care Teams Toe Sewer Relationship Specialty Start Date End Date Rakel Olivier MD [address] [place] [address] PCP - General FAMILY PRACTICE 08/17/21
[2024-09-03 12:35] VITALS: BP 115/82; PULSE 76; RESP 18; TEMP 35.7; O2SAT 100; BMI 36.5
[2024-09-03] MEDS: LACTATED RINGERS 1,000 ML 150 ML IV CONT (12:59)
--- NOTE | 2024-09-03 13:24 | PM.HPGS ---
History of Present Illness History of Present Illness Consent: Risks, benefits, and alternatives have been discussed and questions answered. Patient agrees to proceed with procedure. Chief complaint: personal hx colon polyps Narrative: Kieran Gimenez is a 54 year old male with colon polyp in 2021 Review of Systems Review of Systems: All systems reviewed & are unremarkable except as noted in HPI and below PMFSH Past Medical History Medical History (Updated 09/03/24 @ 13:25 by Avery Kwong MD) Adenomatous colon polyp Hemorrhoid BMI 33.0-33.9,adult HTN (hypertension) Benign prostatic hyperplasia with lower urinary tract symptoms Mixed hyperlipidemia Surgical History Surgical History History of hemorrhoidectomy exam under anesthesia, excision thrombosed external hemorrhoids x3 Family History Family History Sibling Patient's brother is in good health Father Cerebrovascular accident Family history of premature coronary heart disease Hypertension Family history of elevated blood lipids Family history of coronary artery disease Mother Cerebrovascular accident Hypertension Family history of elevated blood lipids Social History Social History Social History: Smoking status: Never smoker Second hand tobacco smoke exposure: No Alcohol intake: never Substance use: never Substance use type: does not use Do You Feel Safe in your Home?: Yes Lack of Transportation: No Lack of Food: Never True Current Housing: I Have Housing Concerned About Future Housing: No Difficulty Paying Gas/Electric Bills: No Difficulty Paying for Meds: No Currently Unemployed: No Education: Decline to Answer Difficulty w/ Childcare or Family Care: No Living arrangements: with family Occupation/Education: occupation Additional occupation/education comments: [employer] Gender identity (if verbalized by the patient): Male Sexual Orientation (if Verbalized by the Patient): Straight or Heterosexual Spiritual care concerns: No Meds Home Medications and Allergies Home Medications ?Medication ?Instructions ?Recorded ?Confirmed ?Type aspirin 81 mg tablet 81 mg PO DAILY 09/18/21 09/03/24 History atorvastatin 20 mg tablet 20 mg PO DAILY #90 tabs 01/16/24 09/03/24 Rx lisinopril 2.5 mg tablet See Rx Instructions .Route 01/16/24 09/03/24 Rx .COMPLEX #90 tabs propranolol 40 mg tablet 40 mg PO Q12H #60 tabs 08/20/24 09/03/24 Rx tadalafil 2.5 mg tablet (Cialis) 2.5 mg PO DAILY 08/20/24 09/03/24 History cyclobenzaprine 5 mg tablet 5 mg PO TID PRN muscle spasm #60 08/28/24 08/30/24 Rx tabs prednisone 10 mg tablet 10 mg PO DAILY #20 tabs 08/28/24 09/03/24 Rx Allergies Allergy/AdvReac Type Severity Reaction Status Date / Time Penicillins AdvReac Unknown UNKNOWN Verified 09/03/24 12:41 REACTION CHILD Vital Signs Vital Signs - 24 hr 09/03/24 12:35 Temperature 96.3 F L Pulse Rate 76 Respiratory Rate 18 Blood Pressure 115/82 Pulse Oximetry 100 Oxygen Delivery Room Air Exam Const: General: comfortable and no acute distress HENMT: Face/Nose/Sinus: Normal nares present Eyes: General: appearance normal, both eyes and all related structures Neck: Neck: no JVD Resp: Auscultation: clear to auscultation bilaterally Cardio: Rate: regular rate Rhythm: regular rhythm GI: Inspection: non-distended GI Palp: Yes Soft to palpation Skin: General skin exam: normal color Neuro: General: gait normal Speech: normal speech Extrem: General: normal to inspection Psych: Mental Status: mental status grossly normal Assessment and Plan Assessment and plan (1) Adenomatous colon polyp: Code(s): D12.6 - Benign neoplasm of colon, unspecified Status: Acute Assessment and Plan: colonoscopy
--- NOTE | 2024-09-03 13:27 | WPDANESEPPF ---
Anes - Initial Pre Proc Eval Procedure: Operation Date: 09/03/24 14:00 Proposed Procedures p Screening Colonoscopy - Avery Kwong MD Date/Time: 09/03/24 13:27 Surgeon: Avery Kwong MD Pre Op Diagnosis: personal hx colon polyps Patient Data Age: 54 Gender: M Height: 1.75 m Weight: 112.2 kg Last Vital Signs Temp 96.3 F L 09/03/24 12:35 Pulse 76 09/03/24 12:35 Resp 18 09/03/24 12:35 BP 115/82 09/03/24 12:35 Pulse Ox 100 09/03/24 12:35 O2 Del Method Room Air 09/03/24 12:35 Allergies Allergy/AdvReac Type Severity Reaction Status Date / Time Penicillins AdvReac Unknown UNKNOWN Verified 09/03/24 12:41 REACTION CHILD Home Medications ?Medication ?Instructions ?Recorded ?Confirmed ?Type aspirin 81 mg tablet 81 mg PO DAILY 09/18/21 09/03/24 History atorvastatin 20 mg tablet 20 mg PO DAILY #90 tabs 01/16/24 09/03/24 Rx lisinopril 2.5 mg tablet See Rx Instructions .Route 01/16/24 09/03/24 Rx .COMPLEX #90 tabs propranolol 40 mg tablet 40 mg PO Q12H #60 tabs 08/20/24 09/03/24 Rx tadalafil 2.5 mg tablet (Cialis) 2.5 mg PO DAILY 08/20/24 09/03/24 History cyclobenzaprine 5 mg tablet 5 mg PO TID PRN muscle spasm #60 08/28/24 08/30/24 Rx tabs prednisone 10 mg tablet 10 mg PO DAILY #20 tabs 08/28/24 09/03/24 Rx Patient hx anesthesia problems: none Family hx anesthesia problems: none Results Review: All pre-operative results and documents have been reviewed as part of the pre-operative evaluation. FORMERLY [facility], [facility] Past Medical History Medical History Adenomatous colon polyp Hemorrhoid BMI 33.0-33.9,adult HTN (hypertension) Benign prostatic hyperplasia with lower urinary tract symptoms Mixed hyperlipidemia Surgical History Surgical History History of hemorrhoidectomy exam under anesthesia, excision thrombosed external hemorrhoids x3 Family History Family History Sibling Patient's brother is in good health Father Cerebrovascular accident Family history of premature coronary heart disease Hypertension Family history of elevated blood lipids Family history of coronary artery disease Mother Cerebrovascular accident Hypertension Family history of elevated blood lipids Social History Social History Social History: Smoking status: Never smoker Second hand tobacco smoke exposure: No Alcohol intake: never Substance use: never Substance use type: does not use Do You Feel Safe in your Home?: Yes Lack of Transportation: No Lack of Food: Never True Current Housing: I Have Housing Concerned About Future Housing: No Difficulty Paying Gas/Electric Bills: No Difficulty Paying for Meds: No Currently Unemployed: No Education: Decline to Answer Difficulty w/ Childcare or Family Care: No Living arrangements: with family Occupation/Education: occupation 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[employer] Gender identity (if verbalized by the patient): Male Sexual Orientation (if Verbalized by the Patient): Straight or Heterosexual Spiritual care concerns: No Anes - Eval Final PreProcedure Day of Procedure 09/03/24 13:27 Patient weight: obese Lungs: normal air movement Airway: Mallampati scale class II Neurological: alert and oriented Last oral intake: >/= 8 hours ASA classification: III Emergent: no Anesthetic plan: proceed Anesthesia type and monitoring: general GIVS and standard monitoring Results Review: All pre-operative results and documents have been reviewed as part of the pre-operative evaluation. HTN, hyperlipidemia, obesity. Informed Consent: The patient's anesthetic plan and its attendant risks and benefits were discussed with the patient/family/POA. Questions were solicited and answers provided to the satisfaction of the patient/family/POA.
[2024-09-03 13:46] VITALS: BP 113/78; PULSE 82; RESP 17; O2SAT 95
[2024-09-03 13:56] VITALS: BP 118/68; PULSE 81; RESP 19; O2SAT 97
[2024-09-03 14:06] VITALS: BP 118/72; PULSE 79; RESP 22; O2SAT 97
== END 2024-09-03 14:10 | disposition home or self-care (01) ==
PROVIDERS: PCP Family Medicine; Referring Provider Student in an Organized Health Care Education/Training Program; Visit Provider Internal Medicine Gastroenterology
PROC: 0DJD8ZZ Inspection of Lower Intestinal Tract, Via Natural or Artificial Opening Endoscopic (ICD-10-PCS; CPT 45378; principal; 2024-09-03 14:00)
DX: Z12.11 Encounter for screening for malignant neoplasm of colon (principal); K63.5 Polyp of colon; K57.30 Diverticulosis of large intestine without perforation or abscess without bleeding; I10 Essential (primary) hypertension; E78.2 Mixed hyperlipidemia; N40.1 Benign prostatic hyperplasia with lower urinary tract symptoms; E66.9 Obesity, unspecified; Z68.36 Body mass index [BMI] 36.0-36.9, adult; Z79.82 Long term (current) use of aspirin; Z79.52 Long term (current) use of systemic steroids; Z98.890 Other specified postprocedural states; Z82.49 Family history of ischemic heart disease and other diseases of the circulatory system
CPT/HCPCS: 45385; 88305; J2003; J2704; J7120

== ENCOUNTER 2024-12-01 10:53 | Outpatient (CLI) | payer OTHER, SELFPAY ==
--- NOTE | ~2024-12-01 | US_ITS ---
US renal BI 12/01/2024 11:14 Procedure: Realtime transabdominal ultrasound of the kidneys and bladder. Indication: Left renal mass Comparison: No prior studies for comparison. Findings: Renal echotexture is normal bilaterally without hydronephrosis, contour deforming mass or r enal calculus. The right kidney measures 11.6 cm and left kidney measures 12.8 cm. There is a left re nal cyst measuring 6.8 cm. Bladder within normal limits. Impression: 1: Left renal cyst measuring 6.8 cm. Reviewed, dictated and finalized at location A. Impression: 1: Left renal cyst measuring 6.8 cm.
== END 2024-12-01 10:54 | disposition home or self-care (01) ==
LOC: MICIMG 10:54
PROVIDERS: PCP Family Medicine; Visit Provider Physician Assistant Medical
DX: N28.89 Other specified disorders of kidney and ureter (principal); N28.1 Cyst of kidney, acquired
CPT/HCPCS: 76775

== ENCOUNTER 2025-01-21 09:00 | Outpatient (CLI) | payer OTHER, SELFPAY ==
--- NOTE | ~2025-01-21 | XR_ITS ---
XR cervical spine min 6V Ordering provider: Evin Flores PA-C History: . R20.0 - Anesthesia of skin . Comparison: None. FINDINGS: VERTEBRAL BODIES: Normal height and alignment. No visible fracture or subluxation. The dens is intact . Degenerative changes of the spine. DISK SPACES: Narrowing of the disc C5-C6 and C6-C7. Multilevel facet joint disease. Multilevel uncove rtebral joint osteoarthritic changes. Narrowing of the right foramina at the level of C3-C4, C4-C5, C 5-C6 and C6-C7. Narrowing of the left foramina at the level of C5-C6 and C6-C7. PARASPINOUS SOFT TISSUES: No prevertebral soft tissue swelling. IMPRESSION: No acute osseous abnormality cervical spine. Multilevel degenerative disc disease. Multilevel intervertebral foraminal narrowing. Reviewed, dictated and finalized at location A.
--- NOTE | ~2025-01-21 | XR_ITS ---
XR hand LT min 3V Ordering provider: Evin Flores PA-C History: . M79.642 - Pain in left hand . Comparison: None. FINDINGS: BONES: No acute fracture or dislocation. JOINT SPACES: Narrowing of the proximal interphalangeal joint of the fifth finger. Otherwise, Well ma intained. SOFT TISSUES: Unremarkable. IMPRESSION: No acute osseous abnormality left hand. Osteoarthritic changes of the fifth proximal interphalangeal joint. Reviewed, dictated and finalized at location A.
== END 2025-01-21 09:01 | disposition home or self-care (01) ==
LOC: MICIMG 09:01
PROVIDERS: PCP Family Medicine; Visit Provider Physician Assistant
DX: M47.812 Spondylosis without myelopathy or radiculopathy, cervical region (principal); M19.042 Primary osteoarthritis, left hand; M48.02 Spinal stenosis, cervical region
CPT/HCPCS: 72052; 73130

== ENCOUNTER 2025-01-30 08:50 | Outpatient (CLI) | payer OTHER, SELFPAY ==
--- NOTE | ~2025-01-30 | US_ITS ---
EXAMINATION:US venous doppler LE BI INDICATION:Leg swelling TECHNIQUE: Multiple grayscale, color flow and Doppler images of the right and left lower extremity de ep venous systems were obtained and reviewed. COMPARISON:No prior studies for comparison. FINDINGS: The common femoral, superficial femoral and popliteal veins demonstrate normal respiratory variation, augmentation and compressibility. Color flow is also seen within the posterior tibial, pe roneal, greater saphenous and profunda veins. IMPRESSION: 1: No lower extremity deep venous thrombosis. Reviewed, dictated and finalized at location A.
== END 2025-01-30 08:51 | disposition home or self-care (01) ==
LOC: MICIMG 08:51
PROVIDERS: PCP Family Medicine; Visit Provider Physician Assistant
DX: M79.89 Other specified soft tissue disorders (principal)
CPT/HCPCS: 93970

== ENCOUNTER 2025-05-14 15:21 | Outpatient (CLI) | payer OTHER, SELFPAY ==
--- NOTE | ~2025-05-14 | XR_ITS ---
EXAMINATION: XR hip BI 2V w AP pelvis, 05/14/2025 15:27 CDT HISTORY: M54.50 - Low back pain, unspecified COMPARISON: No comparisons available. Findings: No acute fracture or malalignment. Severe degenerative changes Soft tissues unremarkable. Impression: No acute fracture or malalignment. Reviewed, dictated and finalized at location P. Impression: No acute fracture or malalignment.
--- NOTE | ~2025-05-14 | XR_ITS ---
EXAMINATION: XR chest 2V, 05/14/2025 15:27 CDT HISTORY: R05.9 - Cough, unspecified COMPARISON: No comparisons available. Technique: 2 views obtained. Findings: The lungs are clear, no effusion. No pneumothorax. Heart is normal size. Mediastinal and hilar contours are within normal limits. Bony thorax no acute abnormality. Impression: No acute cardiopulmonary abnormality. Reviewed, dictated and finalized at location P. Impression: No acute cardiopulmonary abnormality.
== END 2025-05-14 15:22 | disposition home or self-care (01) ==
LOC: MICIMG 15:22
PROVIDERS: PCP Family Medicine; Visit Provider Student in an Organized Health Care Education/Training Program
DX: M16.11 Unilateral primary osteoarthritis, right hip (principal); M54.50 Low back pain, unspecified; R05.9 Cough, unspecified
CPT/HCPCS: 71046; 73521

== ENCOUNTER 2025-06-25 12:18 | Outpatient (CLI) | payer OTHER, SELFPAY ==
--- NOTE | 2025-06-25 | ECG_ITS ---
Test Date: 2025-06-25 12:52:05 Measurements Intervals [place] Rate: 78 P: 28 CA: 173 QRS: 22 QRSD: 81 T: 21 QT: 347 QTc: 395 Interpretive Statements SINUS RHYTHM INCOMPLETE RIGHT BUNDLE BRANCH BLOCK VOLTAGE CRITERIA FOR LVH CONSIDER INFERIOR INFARCT, AGE INDETERMINATE BASELINE ARTIFACT- V1-V2 ABNORMAL ECG Electronically Signed On 06-25-2025 12:54:29 [employer]ANDER PORTABLE MACHINE by Adelso Briggs D.O.
--- OUTSIDE RECORDS SUMMARY | 2025-06-25 13:01 | XMS_ITS | Clinical Summary ---
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 PROVIDER Gender Identity Not on file Sexual Orientation [...] 10:22 AM CDT Height 175.3 cm (5' 9) 10/11/2018 10:2 2 AM CDT Body Mass Index 34.61 10/11/2018 10:22 AM CDT Plan of Treatment Health Maintenance Due Date Last Done Comments DTAP/TDAP/TD VACCINES (1 - Tdap) 1989 HEPATITIS B VACCINES (1 of 3 - 19+ 3-dose series) 02/22 COLORECTAL SCREENING 2015 Colorectal Cancer Screening 2015 FIT-DNA Q 3 years 2015 FIT/FOBT Q 1 year 2015 Flex Sig/CT Colonography Q 5 years 2015 ZOSTER VACCINE (1 of 2) 2020 INFLUENZA VACCINE (#1) 2025 Insurance Care Teams Autism Motor Specialist Relationship Specialty Start Date End Date Rakel Olivier MD PCP - General Family Practice 09/18/18
--- OUTSIDE RECORDS SUMMARY | 2025-06-25 13:01 | XMS_ITS | Clinical Summary ---
Author Organization [facility] Address [address] [place] [address] Care Team Providers Care Hydraulic Hammer Operator Name Role Phone Rakel Olivier MD Primary Care Provider [phone]- [phone] Allergies Active Allergy Reactions Criticality Noted Date [...] from your doctor or pharmacy? Rarely 03/08/2024 [facility] Utilities Answer Date Recorded In the past 12 months has th e electric, gas, oil, or water [employer] threatened to shut off services in your [...] or ex-partner? No 03/08/2024 Social Connection and Isolation Panel Answer Date Recorded In a typical week, how many times do you talk on the phone with family, friends, or neighbors? More than three times a week 03/08/2024 How often do you get togethe r with friends or relatives? More than three times a week 03/08/2024 How often do you attend chur ch or holiness services? Never 03/08/2024 Do you belong to any clubs o r organizations such as voodoo groups, unions, fraternal or athletic groups, or [...] medical care, and heating? Somewhat hard 03/08/2024 [facility] - Occupational Stress [...] time in the past 12 m [facility], were you homeless or living in a penitentiary (including now)? No 03/08/2024 Sex and Gender [...] 4:59 AM CDT Height 175.3 cm (5' 9) 03/08/2024 6:47 PM CDT Body Mass Index 37.21 03/08/2024 6:47 PM CDT Plan of Treatment Health Maintenance Due Date Last Done Comments Colorectal Cancer Screening Colonoscopy (10 Years) 1970 Annual Physical 1973 Hepatitis C 1988 Hepatitis B Vaccines (1 of 3 - 19+ 3-dose series) 1989 Pneumococcal Vaccine: 50+ Years (1 of 1 - PCV) 2020 Zoster Vaccines (1 of 2) 2020 COVID-19 Vaccine (1 - 2024-2 6 season) 2025 Influenza Adult (#1) 2025 DTaP, Tdap and Td Vaccines ( 3 - Td or Tdap) 11/17/2032 11/17/2022, 01/03/2014 Hepatitis A Vaccines Aged Out No long er eligible based on patient's age to complete this topic Meningococcal B Vaccine Aged Out No l onger eligible based on patient's age to complete this topic Meningococcal Vaccine Aged Out No qing saqib eligible based on patient's age to complete this topic RSV Immunizations Under 20 Months Aged Out No longer eligible b ased on patient's age to complete this topic Insurance [facility] Advance Directives * Full Code (Latest Code Status on File) Date Activated Date Inactivated Comments 03/08/2024 7:12 PM 03/11/2024 2:24 PM Care Teams Hydraulic Hammer Operator Relationship Specialty Start Date End Date Rakel Olivier MD [address] [place] [address] PCP - General FAMILY PRACTICE 08/17/21
== END 2025-06-25 12:19 | disposition home or self-care (01) ==
PROVIDERS: PCP Family Medicine; Visit Provider Orthopaedic Surgery
DX: Z01.812 Encounter for preprocedural laboratory examination (principal); I45.10 Unspecified right bundle-branch block; R94.31 Abnormal electrocardiogram [ECG] [EKG]
CPT/HCPCS: 93005